=== PATIENT | male | born 1990 | race Caucasian/White ===

== ENCOUNTER 2016-11-28 16:22 | Emergency (ER) | payer OTHER ==
[~2016-11-28] VITALS: Ht 190.5 cm; Wt 109.5 kg
[~2016-11-28 16:22] MED LIST: BACTDSTA PO; DICY20TA PO; FLAG250T PO
[2016-11-28 16:46] VITALS: BP 161/68
[2016-11-28] MEDS ORDERED: NS 1,000 ML IV ONE (17:45)
[2016-11-28 18:15] LABS: BASO % 0.5 % (0.0-1.0); EOS # 0.1 K/mm3 (0.0-0.50); EOS % 1.5 % (0.0-3.0); LARGE UNSTAINED CELL # 0.1 K/mm3 (0.0-0.4); LARGE UNSTAINED CELL % 1.3 % (0.0-4.0); LYMPH # 1.9 K/mm3 (1.5-6.5); LYMPH % 26.6 % (24.0-44.0); MEAN CORPUSCULAR HEMOGLOBIN 31.9 pg (27.0-33.0); MEAN CORPUSCULAR HGB CONC 35.5 g/dl (32.0-36.5); MEAN CORPUSCULAR VOLUME 89.8 fl (80.0-96.0); MONO # 0.3 K/mm3 (0.0-0.8); MONO % 4.8 % (0.0-5.0); NEUTROPHILS # 4.5 K/mm3 (1.8-7.7); NEUTROPHILS % 65.3 % (36.0-66.0); PLATELET COUNT, AUTOMATED 277 k/mm3 (150-450); RED CELL DISTRIBUTION WIDTH 12.3 % (11.5-14.5); WHITE BLOOD COUNT 6.9 K/mm3 (4.0-10.0)
[2016-11-28 18:37] LABS: CONTROL LINE MONO RF C INT CTR LINE PRESENT
[2016-11-28 18:40] LABS: ALBUMIN 4.6 GM/DL (3.2-5.2); ALBUMIN/GLOBULIN RATIO 1.53 (1.00-1.93); ALKALINE PHOSPHATASE 81 U/L (45-117); ALT/SGPT 37 U/L (12-78); ANION GAP 10 MEQ/L (8-16); AST/SGOT 20 U/L (15-37); BILIRUBIN,DIRECT 0.1 MG/DL (0.0-0.2); BILIRUBIN,TOTAL 0.6 MG/DL (0.2-1.0); BLOOD UREA NITROGEN 19 MG/DL (7-18); CALCIUM LEVEL 9.3 MG/DL (8.5-10.1); CARBON DIOXIDE LEVEL 25 MEQ/L (21-32); CHLORIDE LEVEL 103 MEQ/L (98-107); CREATININE FOR GFR 0.91 MG/DL (0.70-1.30); GLOMERULAR FILTRATION RATE > 60.0 (>60); GLUCOSE, FASTING 88 MG/DL (70-105); POTASSIUM SERUM 3.8 MEQ/L (3.5-5.1); SODIUM LEVEL 138 MEQ/L (136-145); TOTAL PROTEIN 7.6 GM/DL (6.4-8.2)
[2016-11-28] MEDS ORDERED: ISOVUE-370 76% 100ML VIAL (Q9967) As Ordered ONE (18:47)
[2016-11-28] MEDS ORDERED: MAGIC MOUTHWASH SUSPENSION BTL SS STA (19:19)
--- NOTE | 2016-11-28 19:20 | REPUSA ---
CT of the soft tissues of the neck. Comparison: none. Clinical history: lump in throat. Technique: Multiple axial CT images were obtained from the base of the skull to the upper thorax afte r administration of nonionic intravenous contrast. Coronal and sagittal reconstructions were also obt ained. Findings: The visualized paranasal sinuses are clear. The pterygopalatine fossa, pterygoid plates and pterygoid muscles are unremarkable. The mucosa of the naso- and oropharynx appears unremarkable. The hypopharynx and larynx show no pathology. The visualized osseous structures are intact. The airway i s patent. No focal mass is appreciated. There is no evidence of lymphadenopathy. The thyroid gland ap pears unremarkable. The superficial soft tissues are unremarkable. The vascular structures demonstrat e normal caliber and contour. No enhancing masses are seen. Impression: Unremarkable CT examination of the soft tissues of the neck.
[2016-11-28] MEDS ORDERED: MAGICMW MT (19:59)
== END 2016-11-28 20:41 | disposition home or self-care (01) ==
LOC: M ED 16:22
DX: R07.0 Pain in throat (principal); K52.9 Noninfective gastroenteritis and colitis, unspecified; Z86.14 Personal history of Methicillin resistant Staphylococcus aureus infection; Z87.891 Personal history of nicotine dependence
CPT/HCPCS: 70491; 80048; 80076; 85025; 86308; 86663; 86664; 86665; 87880; 99283; Q9967